=== PATIENT | male | born 1935 | race Caucasian/White ===

== ENCOUNTER 2016-08-26 07:38 | Outpatient (CLI) | payer MEDICAID, MEDICARE ==
[2016-08-26 08:59] LABS: ALT (SGPT) 15 U/L (0-55); AST (SGOT) 18 U/L (5-34); Alkaline Phosphatase 73 U/L (40-150); Anion Gap 15 mmol/L (10-20); BUN (Urea Nitrogen) 13 mg/dL (8.4-25.7); Bilirubin, Total 0.2 mg/dL (0.2-1.2); Calc. Creatinine Clearance 0 mL/min (70-130); Calcium 8.6 mg/dL (7.8-10.44); Carbon Dioxide 23 mmol/L (23-31); Chloride 108 mmol/L (98-107); Estimated GFR-MDRD 68; Globulin 2.8 g/dL (2.4-3.5); LDL Cholesterol, Calculated 120 mg/dL; Protein, Total 6.4 g/dL (5.8-8.1)
[2016-08-26 09:47] LABS: Hemoglobin A1c 5.9 % (4.0-6.0)
[2016-08-26 10:11] LABS: #Basophils 0.1 thou/uL (0.0-0.2); #Eosinphils 0.3 thou/uL (0.0-0.7); #Lymphocytes 1.5 thou/uL (1.20-3.40); #Monocytes 0.4 thou/uL (0.11-0.59); #Neutrophils 2.8 thou/uL (1.40-6.50); %Basophils 1.5 % (0.0-1.0); %Eosinophils 5.9 % (0.0-10.0); %Lymphocytes 29.3 % (21.0-51.0); Hematocrit 24.5 % (42.0-52.0); Mean Platelet Volume 7.4 fL (7.4-10.4); Red Blood Cell (RBC) Count 3.62 mill/uL (4.70-6.10)
[2016-08-26 10:12] LABS: Anisocytosis MODERATE=16-30 cells (100X) (0-5/hpf); Hypochromia MODERATE=16-30 cells (100X) (0-5/hpf); Microcytosis MODERATE=15-30 cells (100X) (0-5/hpf); Ovalocytes SLIGHT = 2-5 cells (100X) (0-1/hpf)
== END 2016-08-26 07:39 ==
LOC: NAVSJIPCSP 07:38
PROVIDERS: ATTEND Internal Medicine
DX: E78.5 Hyperlipidemia, unspecified (principal); I10 Essential (primary) hypertension; E11.51 Type 2 diabetes mellitus with diabetic peripheral angiopathy without gangrene
CPT/HCPCS: 80053; 80061; 83036; 84443; 85025

== ENCOUNTER 2016-08-27 13:22 | Inpatient (IN) | payer MEDICARE, MEDICAID ==
[2016-08-27 17:54] LABS: #Basophils 0.1 thou/uL (0.0-0.2); #Eosinphils 0.3 thou/uL (0.0-0.7); #Monocytes 0.4 thou/uL (0.11-0.59); #Neutrophils 3.2 thou/uL (1.40-6.50); %Basophils 1.7 % (0.0-1.0); %Eosinophils 4.6 % (0.0-10.0); %Lymphocytes 32.7 % (21.0-51.0); %Monocytes 7.3 % (0.0-10.0); Hematocrit 24.4 % (42.0-52.0); Mean Platelet Volume 6.4 fL (7.4-10.4); Red Blood Cell (RBC) Count 3.63 mill/uL (4.70-6.10)
[2016-08-27 19:36] LABS: Reticulocyte Count 2.6 % (0.5-1.5)
[2016-08-27] MEDS: Carvedilol 3.125 MG TAB PO SCH (20:42)
[2016-08-27] MEDS: Famotidine 20 MG TAB PO SCH (20:42)
[2016-08-27] MEDS: ALPRAZolam 0.5 MG TAB PO SCH (20:42)
[2016-08-28] MEDS ORDERED: Sodium Chloride 0.9% 10 ML ONE (02:57)
[2016-08-28 05:27] LABS: Anisocytosis MODERATE=16-30 cells (100X) (0-5/hpf); Elliptocytes MODERATE= 6-15 cells (100X) (0-1/hpf); Hematocrit 33.4 % (42.0-52.0); Mean Platelet Volume 6.8 fL (7.4-10.4); Neutrophil 48 % (42-75); Red Blood Cell (RBC) Count 4.57 mill/uL (4.70-6.10)
[2016-08-28 05:34] LABS: ALT (SGPT) 13 U/L (0-55); AST (SGOT) 20 U/L (5-34); Alkaline Phosphatase 72 U/L (40-150); Anion Gap 12 mmol/L (10-20); BUN (Urea Nitrogen) 14 mg/dL (8.4-25.7); Bilirubin, Total 0.4 mg/dL (0.2-1.2); Calc. Creatinine Clearance 75 mL/min (70-130); Calcium 8.8 mg/dL (7.8-10.44); Carbon Dioxide 26 mmol/L (23-31); Chloride 107 mmol/L (98-107); Estimated GFR-MDRD 76; Globulin 3.1 g/dL (2.4-3.5); Protein, Total 6.8 g/dL (5.8-8.1)
[2016-08-28] MEDS: ALPRAZolam 0.5 MG TAB PO SCH ×3 (08:26→21:07)
[2016-08-28] MEDS: Famotidine 20 MG TAB PO SCH ×2 (08:26→21:06)
[2016-08-28] MEDS: OLANZapine 5 MG TAB PO SCH (08:26)
[2016-08-28] MEDS: Carvedilol 3.125 MG TAB PO SCH ×2 (08:26→21:07)
[2016-08-28] MEDS: Multivitamin W/ Minerals 1 TAB PO SCH (08:26)
[2016-08-28] MEDS: Pioglitazone HCl 15 MG TAB PO SCH (08:27)
[2016-08-28 12:36] VITALS: BMI 33.6
--- NOTE | 2016-08-28 17:31 | HP ---
DATE OF ADMISSION: 08/27/2016 CHIEF COMPLAINT: Severe weakness, dizziness, and recurrent anemia. HISTORY OF PRESENT ILLNESS: The patient is a 80-year-old white male living at the long-term for many years secondary to schizophrenia and bipolar disorder who has had also medical complications of tachycardia-bradycardia syndrome, status post pacemaker, and has had a recent diagnosis in the last 2 years of significant anemia required admission to the hospital with the evaluation revealing only mild diverticulosis and minimal gastritis as the cause of his anemia. He required transfusion at t hat time and has done well since that time, but has slowly been worsening with his anemia over the l ast several months despite iron and folate, and B12 supplementation. He was found at the [facility] to have a hemoglobin of 7 on the date of admission and found to be significantly weak, somewhat i ncreased confusion and altered and therefore was admitted to the hospital. PAST MEDICAL HISTORY: Remarkable for the above-mentioned history of tachycardia-bradycardia syndrom e, status post pacemaker. He also had a history of hyperlipidemia and type 2 diabetes. ALLERGIES: He is allergic to ABILIFY, FIDEL, AND COGENTIN. PAST SURGICAL HISTORY: Only positive for the pacemaker placement. REVIEW OF SYSTEMS: HEENT: He denies any headaches, change in vision or hearing, hoarseness or dysphagia. PULMONARY: Denies cough, sputum production, pneumonia, asthma, tuberculosis. CARDIOVASCULAR: He denies any chest pain or palpitations at this time, orthopnea, paroxysmal noctur nal dyspnea. GASTROINTESTINAL: He denies any nausea, vomiting, abdominal pain, change in bowel movements. GENITOURINARY: Denies dysuria, hematuria, nocturia. MUSCULOSKELETAL: Denies stiffness, swelling in joints or extremities. PHYSICAL EXAMINATION: GENERAL: Patient is an elderly white male, appears pale, no acute distress, weak, oriented x3 and c ooperative, but a poor historian. VITAL SIGNS: Blood pressure of 145/65, pulse 60, respirations 20, temperature 97.2. HEENT: Pupils equal, round, and reactive to light and accommodation. Sclerae are anicteric. Conju nctivae pale. Oral mucous membranes well hydrated. NECK: Supple. There are no nodes or masses. JVP is not elevated. Carotids 2+ and equal without b ruits. LUNGS: Clear. CARDIAC: Regular rhythm. Pacemaker in place. ABDOMEN: Soft, nontender with no masses or organomegaly. SKIN/EXTREMITIES: Display no edema, clubbing, cyanosis. NEUROLOGIC: Shows no focal findings. LABORATORY AND X-RAY FINDINGS: As mentioned above showed a hemoglobin of 7, hematocrit 24, white co unt 6000. Sodium 135, potassium 3.6, chloride 100, bicarbonate 23, BUN 18, creatinine 0.99, and glu cose 114. ASSESSMENT: 1. Recurrent anemia most likely due to angiodysplasia with no evidence of myelodysplastic disorder on CBC. 2. Stable tachycardia-bradycardia syndrome, status post pacemaker. 3. Stable type 2 diabetes on Actos and Glucophage. 4. Stable bipolar disorder and schizophrenia on Zyprexa and Seroquel and Cymbalta. 5. Hypertension, well controlled on amlodipine and carvedilol. PLAN: Type and cross 2 units of packed cells transfused. Monitor for symptoms of weakness and dizz iness. Check folate level, B12 level, ferritin level, and check stool guaiacs monitor for recurren t anemia and symptomatology and for improvement with transfusion.
[2016-08-29 05:09] LABS: #Basophils 0.1 thou/uL (0.0-0.2); #Eosinphils 0.4 thou/uL (0.0-0.7); #Lymphocytes 1.8 thou/uL (1.20-3.40); #Monocytes 0.6 thou/uL (0.11-0.59); #Neutrophils 3.2 thou/uL (1.40-6.50); %Basophils 1.5 % (0.0-1.0); %Eosinophils 5.7 % (0.0-10.0); %Lymphocytes 30.2 % (21.0-51.0); %Monocytes 9.9 % (0.0-10.0); Hematocrit 35.9 % (42.0-52.0); Red Blood Cell (RBC) Count 4.94 mill/uL (4.70-6.10); White Blood Cell (WBC) Count 6.1 thou/uL (4.8-10.8)
[2016-08-29 05:10] LABS: Anisocytosis MODERATE=16-30 cells (100X) (0-5/hpf); Elliptocytes MODERATE= 6-15 cells (100X) (0-1/hpf); Microcytosis SLIGHT = 6-15 cells (100X) (0-5/hpf)
[2016-08-29 07:23] VITALS: BP 107/76; TEMP 98.5
[2016-08-29] MEDS: ALPRAZolam 0.5 MG TAB PO SCH (08:34)
[2016-08-29] MEDS: Carvedilol 3.125 MG TAB PO SCH (08:34)
[2016-08-29] MEDS: Multivitamin W/ Minerals 1 TAB PO SCH (08:35)
[2016-08-29] MEDS: Pioglitazone HCl 15 MG TAB PO SCH (08:35)
[2016-08-29] MEDS: OLANZapine 5 MG TAB PO SCH (08:35)
[2016-08-29] MEDS: Famotidine 20 MG TAB PO SCH (08:35)
== END 2016-08-29 11:30 | DRG 812 ==
LOC: NAV ACUTE 13:22
PROVIDERS: ADMIT Internal Medicine; ATTEND Internal Medicine
PROC: 30233N1 Transfusion of Nonautologous Red Blood Cells into Peripheral Vein, Percutaneous Approach (ICD-10-PCS; principal; 2016-08-27)
DX: D64.9 Anemia, unspecified (principal); I49.5 Sick sinus syndrome; E11.9 Type 2 diabetes mellitus without complications; Z95.0 Presence of cardiac pacemaker; F31.9 Bipolar disorder, unspecified; F20.9 Schizophrenia, unspecified; Z79.84 Long term (current) use of oral hypoglycemic drugs; Z88.8 Allergy status to other drugs, medicaments and biological substances; E78.5 Hyperlipidemia, unspecified; I10 Essential (primary) hypertension
CPT/HCPCS: 36415; 36416; 36430; 80053; 82270; 82607; 82728; 82746; 85007; 85025; 85027; 85046; 86850; 86900; 86901; A4216; P9016

== ENCOUNTER 2016-10-02 07:30 | Outpatient (CLI) | payer MEDICARE, OTHER ==
[2016-10-02 08:56] LABS: Hemoglobin A1c 5.9 % (4.0-6.0)
== END 2016-10-02 07:31 | disposition home or self-care (01) ==
LOC: NAV LABSP 07:30
PROVIDERS: ATTEND Internal Medicine
DX: E11.9 Type 2 diabetes mellitus without complications (principal)
CPT/HCPCS: 36415; 83036

== ENCOUNTER 2016-11-12 07:47 | Outpatient (CLI) | payer MEDICARE, OTHER ==
[2016-11-12 08:14] LABS: Hemoglobin A1c 5.8 % (4.0-6.0)
[2016-11-12 08:16] LABS: ALT (SGPT) 12 U/L (0-55); AST (SGOT) 16 U/L (5-34); Albumin 3.5 g/dL (3.4-4.8); Alkaline Phosphatase 71 U/L (40-150); Anion Gap 12 mmol/L (10-20); BUN (Urea Nitrogen) 11 mg/dL (8.4-25.7); Bilirubin, Total 0.2 mg/dL (0.2-1.2); Calc. Creatinine Clearance 0 mL/min (70-130); Calcium 8.4 mg/dL (7.8-10.44); Carbon Dioxide 28 mmol/L (23-31); Chloride 103 mmol/L (98-107); Estimated GFR-MDRD 76; Globulin 2.7 g/dL (2.4-3.5); Glucose 118 mg/dL (83-110); Potassium 4.3 mmol/L (3.5-5.1); Protein, Total 6.2 g/dL (5.8-8.1); Sodium 139 mmol/L (136-145)
[2016-11-12 08:29] LABS: #Basophils 0.1 thou/uL (0.0-0.2); #Eosinphils 0.2 thou/uL (0.0-0.7); #Lymphocytes 1.9 thou/uL (1.20-3.40); #Monocytes 0.6 thou/uL (0.11-0.59); #Neutrophils 3.3 thou/uL (1.40-6.50); %Basophils 1.1 % (0.0-1.0); %Lymphocytes 31.1 % (21.0-51.0); %Monocytes 9.8 % (0.0-10.0); Hemoglobin 10.6 g/dL (14.0-18.0); Mean Corpuscular Volume 87.2 fl (80.0-94.0); Mean Platelet Volume 8.2 fL (7.4-10.4); Platelet Count 228 thou/uL (130-400); RBC Distribution Width 24.2 % (11.5-14.5); Red Blood Cell (RBC) Count 3.93 mill/uL (4.70-6.10)
[2016-11-12 08:30] LABS: Anisocytosis SLIGHT = 6-15 cells (100X) (0-5/hpf); Hypochromia SLIGHT = 6-15 cells (100X) (0-5/hpf); MDiff Complete? YES; PLT Morphology Comment Appears Adequate; Target Cells MODERATE= 6-15 cells (100X) (0-1/hpf)
== END 2016-11-12 07:48 | disposition home or self-care (01) ==
LOC: NAV NNR 07:47
PROVIDERS: ATTEND Internal Medicine
DX: E03.9 Hypothyroidism, unspecified (principal); D50.0 Iron deficiency anemia secondary to blood loss (chronic); E11.9 Type 2 diabetes mellitus without complications
CPT/HCPCS: 80053; 83036; 84443; 85025

== ENCOUNTER 2017-01-08 07:17 | Outpatient (CLI) | payer MEDICARE, OTHER ==
[2017-01-08 08:29] LABS: Hemoglobin A1c 6.4 % (4.0-6.0)
== END 2017-01-08 07:18 | disposition home or self-care (01) ==
LOC: NAV LABSP 07:17
PROVIDERS: ATTEND Internal Medicine
DX: E11.9 Type 2 diabetes mellitus without complications (principal)
CPT/HCPCS: 36415; 83036

== ENCOUNTER 2017-02-12 07:45 | Outpatient (CLI) | payer MEDICARE, OTHER ==
[2017-02-12 08:45] LABS: #Basophils 0.1 thou/uL (0.0-0.2); #Eosinphils 0.2 thou/uL (0.0-0.7); #Lymphocytes 1.7 thou/uL (1.20-3.40); #Monocytes 0.5 thou/uL (0.11-0.59); #Neutrophils 3.4 thou/uL (1.40-6.50); %Basophils 1.1 % (0.0-1.0); %Lymphocytes 28.6 % (21.0-51.0); %Neutrophils 58.3 % (42.0-75.0); Hemoglobin 11.3 g/dL (14.0-18.0); Mean Corpuscular HGB CONC 31.2 g/dL (32.0-36.0); Mean Corpuscular Hemoglobin 28.1 pg (27.0-31.0); Mean Corpuscular Volume 90.1 fl (80.0-94.0); Platelet Count 266 thou/uL (130-400); RBC Distribution Width 13.8 % (11.5-14.5); Red Blood Cell (RBC) Count 4.01 mill/uL (4.70-6.10); White Blood Cell (WBC) Count 5.8 thou/uL (4.8-10.8)
[2017-02-12 08:56] LABS: ALT (SGPT) 13 U/L (8-55); AST (SGOT) 18 U/L (5-34); Alkaline Phosphatase 93 U/L (40-150); Anion Gap 17 mmol/L (10-20); BUN (Urea Nitrogen) 10 mg/dL (8.4-25.7); Bilirubin, Total 0.3 mg/dL (0.2-1.2); Calc. Creatinine Clearance 0 mL/min (70-130); Carbon Dioxide 25 mmol/L (23-31); Chloride 101 mmol/L (98-107); Estimated GFR-MDRD 68; Globulin 3.1 g/dL (2.4-3.5); Glucose 119 mg/dL (83-110); Potassium 4.3 mmol/L (3.5-5.1); Protein, Total 7.1 g/dL (5.8-8.1); Sodium 139 mmol/L (136-145)
[2017-02-12 17:31] LABS: Microalbumin Urine Less than 1.0 mg/dL (0.5-50.0); Microalbumin/Creat Ratio 17.2 mg/g (Less than 30)
== END 2017-02-12 07:46 | disposition home or self-care (01) ==
LOC: NAV LABSP 07:45
PROVIDERS: ATTEND Internal Medicine
DX: E11.51 Type 2 diabetes mellitus with diabetic peripheral angiopathy without gangrene (principal); D50.0 Iron deficiency anemia secondary to blood loss (chronic); I10 Essential (primary) hypertension
CPT/HCPCS: 36415; 80053; 82043; 85025

== ENCOUNTER 2017-03-30 10:56 | Outpatient (CLI) | payer MEDICARE, OTHER ==
[2017-03-30 14:40] LABS: #Basophils 0.1 thou/uL (0.0-0.2); #Eosinphils 0.2 thou/uL (0.0-0.7); #Lymphocytes 1.4 thou/uL (1.20-3.40); #Monocytes 0.4 thou/uL (0.11-0.59); #Neutrophils 2.2 thou/uL (1.40-6.50); %Basophils 1.3 % (0.0-1.0); %Lymphocytes 33.4 % (21.0-51.0); %Monocytes 8.9 % (0.0-10.0); %Neutrophils 51.4 % (42.0-75.0); Hemoglobin 10.5 g/dL (14.0-18.0); Mean Corpuscular HGB CONC 31.9 g/dL (32.0-36.0); Mean Corpuscular Hemoglobin 28.1 pg (27.0-31.0); Mean Corpuscular Volume 88.1 fl (80.0-94.0); Mean Platelet Volume 7.2 fL (7.4-10.4); Platelet Count 239 thou/uL (130-400); RBC Distribution Width 14.7 % (11.5-14.5); Red Blood Cell (RBC) Count 3.73 mill/uL (4.70-6.10); White Blood Cell (WBC) Count 4.2 thou/uL (4.8-10.8)
[2017-03-30 17:55] LABS: ALT (SGPT) 20 U/L (8-55); AST (SGOT) 30 U/L (5-34); Albumin 3.7 g/dL (3.4-4.8); Alkaline Phosphatase 85 U/L (40-150); Anion Gap 17 mmol/L (10-20); BUN (Urea Nitrogen) 10 mg/dL (8.4-25.7); Bilirubin, Total 0.2 mg/dL (0.2-1.2); Calc. Creatinine Clearance 0 mL/min (70-130); Calcium 8.9 mg/dL (7.8-10.44); Carbon Dioxide 25 mmol/L (23-31); Chloride 104 mmol/L (98-107); Estimated GFR-MDRD 87; Globulin 2.8 g/dL (2.4-3.5); Glucose 120 mg/dL (83-110); Potassium 4.1 mmol/L (3.5-5.1); Protein, Total 6.5 g/dL (5.8-8.1); Sodium 142 mmol/L (136-145)
[2017-03-30 18:19] LABS: Hemoglobin A1c 6.5 % (4.0-6.0)
== END 2017-03-30 10:57 | disposition home or self-care (01) ==
LOC: NAV LABSP 10:56
PROVIDERS: ATTEND Internal Medicine
DX: E11.9 Type 2 diabetes mellitus without complications (principal); Z79.899 Other long term (current) drug therapy
CPT/HCPCS: 36415; 80053; 83036; 85025

== ENCOUNTER 2021-09-06 01:42 | Emergency (ER) | payer MEDICARE, MEDICAID | END 2021-09-06 02:08 | LOC: NAV ERS 01:42 | DX: K94.23 Gastrostomy malfunction (principal); I10 Essential (primary) hypertension; E11.9 Type 2 diabetes mellitus without complications; K21.9 Gastro-esophageal reflux disease without esophagitis | CPT/HCPCS: 43762 ==

== ENCOUNTER 2021-11-06 19:57 | Emergency (ER) | payer MEDICARE, MEDICAID ==
[2021-11-06 20:33] LABS: #Basophils 0.1 thou/uL (0.0-0.2); #Eosinphils 0.1 thou/uL (0.0-0.7); #Lymphocytes 1.3 thou/uL (1.20-3.40); #Monocytes 0.7 thou/uL (0.11-0.59); #Neutrophils 6.2 thou/uL (1.40-6.50); %Basophils 0.6 % (0.0-1.0); %Eosinophils 1.7 % (0.0-10.0); %Monocytes 8.1 % (0.0-10.0); %Neutrophils 74.5 % (42.0-75.0); Hemoglobin 12.6 g/dL (14.0-18.0); Mean Corpuscular Hemoglobin 29.7 pg (27.0-31.0); Mean Corpuscular Volume 92.7 fL (78.0-98.0); Mean Platelet Volume 10.6 fL (7.4-10.4); Platelet Count 191 thou/uL (130-400); RBC Distribution Width 15.3 % (11.5-14.5); Red Blood Cell (RBC) Count 4.26 mill/uL (4.70-6.10); White Blood Cell (WBC) Count 8.4 thou/uL (4.8-10.8)
[2021-11-06 20:43] LABS: INR-International Normal Ratio 1.1
[2021-11-06 20:44] LABS: PTT 34.6 sec (22.9-36.1)
[2021-11-06] MEDS ORDERED: Boostrix 0.5 ML (Tdap) VIAL ONE (20:46)
[2021-11-06 20:49] LABS: ALT (SGPT) 20 U/L (8-55); AST (SGOT) 31 U/L (5-34); Albumin 3.6 g/dL (3.4-4.8); Alkaline Phosphatase 76 U/L (40-110); Anion Gap 14 mmol/L (10-20); BUN (Urea Nitrogen) 35 mg/dL (8.4-25.7); Bilirubin, Total 0.3 mg/dL (0.2-1.2); Calc. Creatinine Clearance 0 mL/min (70-130); Calcium 9.5 mg/dL (7.8-10.44); Carbon Dioxide 30 mmol/L (23-31); Chloride 97 mmol/L (98-107); Globulin 3.3 g/dL (2.4-3.5); Glucose 115 mg/dL (83-110); Potassium 4.2 mmol/L (3.5-5.1); Protein, Total 6.9 g/dL (5.8-8.1); Sodium 137 mmol/L (136-145)
== END 2021-11-06 22:52 ==
LOC: NAV ERS 19:57
DX: S51.012A Laceration without foreign body of left elbow, initial encounter (principal); S30.1XXA Contusion of abdominal wall, initial encounter; E11.9 Type 2 diabetes mellitus without complications; I11.0 Hypertensive heart disease with heart failure; I50.20 Unspecified systolic (congestive) heart failure; K21.9 Gastro-esophageal reflux disease without esophagitis; Z79.82 Long term (current) use of aspirin; Z79.84 Long term (current) use of oral hypoglycemic drugs; Z79.899 Other long term (current) drug therapy; Z23 Encounter for immunization; W17.89XA Other fall from one level to another, initial encounter
CPT/HCPCS: 70450; 71260; 72125; 74177; 80053; 85025; 85610; 85730; 90471; 90715

== ENCOUNTER 2022-09-18 01:34 | Emergency (ER) | payer MEDICARE, OTHER | END 2022-09-18 02:50 | LOC: NAV ERS 01:34 | DX: K94.23 Gastrostomy malfunction (principal); K21.9 Gastro-esophageal reflux disease without esophagitis; E11.9 Type 2 diabetes mellitus without complications; I11.0 Hypertensive heart disease with heart failure; I50.20 Unspecified systolic (congestive) heart failure; Z95.0 Presence of cardiac pacemaker | CPT/HCPCS: 43762; 74018 ==

== ENCOUNTER 2023-07-23 02:20 | Emergency (ER) | payer MEDICARE, MEDICAID ==
[2023-07-23 02:46] LABS: #Basophils 0.1 thou/uL (0.0-0.2); #Lymphocytes 1.2 thou/uL (1.20-3.40); #Monocytes 0.4 thou/uL (0.11-0.59); #Neutrophils 5.2 thou/uL (1.40-6.50); %Basophils 0.7 % (0.0-1.0); %Eosinophils 0.6 % (0.0-10.0); %Lymphocytes 17.6 % (21.0-51.0); %Monocytes 6.1 % (0.0-10.0); Hematocrit 40.9 % (42.0-52.0); Hemoglobin 13.7 g/dL (14.0-18.0); Mean Corpuscular HGB CONC 33.4 g/dL (32.0-36.0); Mean Corpuscular Hemoglobin 32.1 pg (27.0-31.0); Platelet Count 282 10x3/uL (130-400); Red Blood Cell (RBC) Count 4.26 mill/uL (4.70-6.10); White Blood Cell (WBC) Count 6.9 10x3/uL (4.8-10.8)
[2023-07-23 02:58] LABS: ALT (SGPT) 17 U/L (8-55); AST (SGOT) 33 U/L (5-34); Albumin 3.6 g/dL (3.4-4.8); Alkaline Phosphatase 176 U/L (40-110); Anion Gap 18 mmol/L (10-20); BUN (Urea Nitrogen) 35 mg/dL (8.4-25.7); Bilirubin, Total 0.5 mg/dL (0.2-1.2); Calc. Creatinine Clearance 0 mL/min (70-130); Carbon Dioxide 25 mmol/L (23-31); Chloride 100 mmol/L (98-107); Estimated GFR 59; Globulin 3.5 g/dL (2.4-3.5); Glucose 149 mg/dL (83-110); Potassium 5.1 mmol/L (3.5-5.1); Protein, Total 7.1 g/dL (5.8-8.1); Sodium 138 mmol/L (136-145)
[2023-07-23 02:59] LABS: Troponin I 0.046 ng/mL (< 0.028)
[2023-07-23 03:48] LABS: SARS-CoV-2 NAA Rapid Test Not Detected (NotDetected)
== END 2023-07-23 05:40 ==
LOC: NAV ERS 02:20
DX: R05.9 Cough, unspecified (principal); B97.4 Respiratory syncytial virus as the cause of diseases classified elsewhere; E11.9 Type 2 diabetes mellitus without complications; K21.9 Gastro-esophageal reflux disease without esophagitis; I10 Essential (primary) hypertension; Z79.84 Long term (current) use of oral hypoglycemic drugs; Z20.822 Contact with and (suspected) exposure to COVID-19
CPT/HCPCS: 0241U; 71045; 80053; 83880; 84484; 85025; 87040; 87149 ×2; 93005; 36415